=== PATIENT | female | born 1985 | race Caucasian/White ===

== ENCOUNTER 2017-06-13 15:42 | Emergency (ER) | payer MEDICAID ==
[~2017-06-13] VITALS: Ht 170.2 cm; Wt 75.5 kg
[~2017-06-13 15:42] MED LIST: AMO500 PO
[2017-06-13 16:11] VITALS: Ht 170.2 cm; Wt 75.5 kg
[2017-06-13] MEDS ORDERED: HYDROCODONE/APAP (10/325) TAB PO ONE (17:30)
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
[2017-06-13] MEDS ORDERED: HYDR-906 PO (17:56)
[2017-06-13 18:12] VITALS: BP 139/78; PULSE 78; RESP 18
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
== END 2017-06-13 18:13 | disposition home or self-care (01) ==
LOC: FTE 15:42
DX: S09.93XA Unspecified injury of face, initial encounter (principal); Y08.89XA Assault by other specified means, initial encounter
CPT/HCPCS: 70486; Z7502; Z7610

== ENCOUNTER 2018-03-22 03:19 | Emergency (ER) | END 2018-03-22 04:39 | disposition home or self-care (01) ==